=== PATIENT | female | born 1990 | race Caucasian/White ===

== ENCOUNTER 2018-04-18 19:32 | Emergency (ER) | payer MEDICAID ==
[~2018-04-18] VITALS: Ht 177.8 cm; Wt 67.3 kg
[2018-04-18 19:54] VITALS: BP 132/82
[2018-04-18] MEDS ORDERED: HYDROcodone/acetaminophen 10/325mg tab PO ONE (21:50)
== END 2018-04-18 22:29 | disposition home or self-care (01) ==
LOC: ER 19:33
DX: S60.111A Contusion of right thumb with damage to nail, initial encounter (principal); W23.0XXA Caught, crushed, jammed, or pinched between moving objects, initial encounter; Y93.89 Activity, other specified; Y92.89 Other specified places as the place of occurrence of the external cause; Y99.8 Other external cause status
CPT/HCPCS: 11740; 73140; 99284

== ENCOUNTER 2019-06-29 16:07 | Emergency (ER) | payer MEDICAID ==
[~2019-06-29] VITALS: Ht 167.6 cm; Wt 66.0 kg
[2019-06-29 16:13] VITALS: BP 119/77
[2019-06-29 16:59] LABS: BASOPHILS # (AUTO) 0.1 X10'3 (0-0.2); BASOPHILS % (AUTO) 0.7 % (0-1); EOSINOPHILS # (AUTO) 0.1 X10'3 (0-0.9); EOSINOPHILS % (AUTO) 1.1 % (0-6); HEMATOCRIT 39.9 % (35.0-45.0); HEMOGLOBIN 13.8 g/dl (12.0-16.0); LYMPHOCYTES # (AUTO) 2.5 X10'3 (1.1-4.8); MEAN CORPUSCULAR HEMOGLOBIN 34.3 PG (27.0-31.0); MEAN CORPUSCULAR HGB CONC 34.6 g/dL (33.0-36.5); MEAN CORPUSCULAR VOLUME 99.3 FL (78-98); MEAN PLATELET VOLUME 6.5 FL (7.4-10.4); MONOCYTES # (AUTO) 0.5 X10'3 (0-0.9); NEUTROPHILS # (AUTO) 8.2 X10'3 (1.8-7.7); NEUTROPHILS % (AUTO) 72.2 % (42-75); PLATELET COUNT 385 X10'3 (140-440); RED BLOOD COUNT 4.02 X10'6 (4.20-5.60); RED CELL DISTRIBUTION WIDTH 13.8 % (11.5-14.5); WHITE BLOOD COUNT 11.4 X10'3 (4.5-11.0)
[2019-06-29 17:15] LABS: ALANINE AMINOTRANSFERASE 22 U/L (12-78); ALBUMIN 3.7 G/DL (3.4-5.0); ALBUMIN/GLOBULIN RATIO 1.1 (1.1-1.5); ALKALINE PHOSPHATASE 47 IU/L (46-116); ANION GAP 9 (8-16); ASPARTATE AMINO TRANSFERASE 9 U/L (10-37); BILIRUBIN,TOTAL 0.3 MG/DL (0.1-1.0); BLOOD UREA NITROGEN 18 MG/DL (7-18); BUN/CREATININE RATIO 23.1 (6.6-38.0); CHLORIDE 105 MMOL/L (99-107); CREATININE 0.78 MG/DL (0.40-0.90); GLUCOSE 91 MG/DL (70-104); POTASSIUM 3.9 MMOL/L (3.5-5.1); SODIUM 142 MMOL/L (135-145); TOTAL CARBON DIOXIDE 27.6 MMOL/L (24-32); TOTAL PROTEIN 7.2 G/DL (6.4-8.2); eGFR 87 ML/MIN
[2019-06-29 18:25] LABS: URINE HCG NEGATIVE (NEG)
--- NOTE | 2019-06-29 18:27 | NUR ---
PT LEFT ED BED 10 FOR UNKNOWN REASONS WITHOUT LETTING STAFF KNOW AND SAT OUT IN THE LOBBY. PT INFORMED SHE CANNOT LEAVE HER ROOM WHILE TREATMENTS ARE BEING PERFORMED. I SPOKE WITH THE ED PROVIDER WHO STATED WE ARE JUST WAITING FOR HER URINE SAMPLE TO COME BACK AND SHE WOULD BE DISCHARGED. PT INFORMED THAT HER ROOM WAS CLEANED AND GIVEN TO ANOTHER PATIENT AND THAT SHE CAN WAIT IN THE LOBBY PENDING HER URINE RESULTS AND UPON THAT TIME WE WOULD D/C HER FROM LOBBY. PT AGREED AND SAT BACK DOWN IN A LOBBY CHAIR. I ASSUMED CARE OF THE PATIENT WHO APPEARS IN NO DISTRESS.
[2019-06-29 18:31] LABS: CLARITY,URINE SLIGHTLY CLOUDY (Clear); COLOR,URINE YELLOW (Yellow); GLUCOSE, URINE NEGATIVE (Neg); KETONES,URINE NEGATIVE (Neg); LEUKOCYTE ESTERASE ,URINE NEGATIVE (Neg); NITRITES, URINE NEGATIVE (Neg); OCCULT BLOOD,URINE NEGATIVE (Neg); PH,URINE 6.5 (4.8-8.0); PROTEIN,URINE NEGATIVE (Neg); UA COLLECTION TYPE CLN CATCH MIDSTREAM; UROBILINOGEN,URINE 0.2 E.U/dL (0.2-1.0)
[2019-06-29 18:41] LABS: BACTERIA,URINE 1+ /HPF (Neg); MUCUS STRANDS NONE SEEN /LPF (Neg); RBC,URINE NONE SEEN /HPF (0-2); SQUAMOUS EPITHELIAL CELL,UR MANY /LPF (FEW); WBC,URINE NONE SEEN /HPF (0-4)
== END 2019-06-29 18:50 | disposition home or self-care (01) ==
LOC: ER 16:07
DX: R10.32 Left lower quadrant pain (principal); R50.9 Fever, unspecified; F17.200 Nicotine dependence, unspecified, uncomplicated; Z86.14 Personal history of Methicillin resistant Staphylococcus aureus infection; Z88.0 Allergy status to penicillin
CPT/HCPCS: 36415; 80053; 81001; 81025; 85025; 99283